=== PATIENT | female | born 1995 ===

== ENCOUNTER 2021-09-20 06:31 | Day surgery (SDC) | payer OTHER ==
[2021-09-20] MEDS ORDERED: PERCOCET 5-3251 EACH PO (10:24)
== END 2021-09-20 15:00 | disposition home or self-care (01) ==
LOC: CIR.AMB 06:31 → EDBD 11:30 → CIR.AMB 15:00
PROVIDERS: ATTEND Surgery
DX: K60.3 Anal fistula (principal); K62.89 Other specified diseases of anus and rectum; Z88.8 Allergy status to other drugs, medicaments and biological substances; J45.909 Unspecified asthma, uncomplicated; Z20.822 Contact with and (suspected) exposure to COVID-19

== ENCOUNTER 2022-03-28 06:00 | Day surgery (SDC) | payer OTHER ==
[~2022-03-28] VITALS: Ht 162.6 cm; Wt 81.6 kg
[~2022-03-28 06:00] MED LIST: PERCOCET 5-3251 EACH PO
[2022-03-28] MEDS ORDERED: PERCOCET 5-3251 EACH PO (14:31)
== END 2022-03-28 17:50 | disposition home or self-care (01) ==
LOC: CIR.AMB 06:00
PROVIDERS: ATTEND Surgery
DX: K60.3 Anal fistula (principal); Z20.822 Contact with and (suspected) exposure to COVID-19; J45.909 Unspecified asthma, uncomplicated